=== PATIENT | female | born 1960 | race Caucasian/White ===

== ENCOUNTER → 2024-11-07 | Outpatient (CLI) | payer OTHER ==
--- NOTE | 2024-11-07 12:04 | MM ---
Reason for Exam: Follow-up at short interval from prior study. Last screening mammogram was performed 1 month(s) ago. Patient History: Menarche at age 13. First Full-Term at age 18. Postmenopausal. Patient used Hormonal Contraceptives for 2 years. 2009, Stereotactic Core Biopsy on the Right side. Mother had breast cancer. Sister (jatin) had breast cancer at or over age 50. Sister (christiana) had breast cancer. Risk Values: Tasha 5 year model risk: 9.0%. NCI Lifetime model risk: 31.4%. Prior Study Comparison: 10/04/2024 Bilateral MG 3D screening mammo w/cad, [facility]. Tissue Density: Left: The breasts are heterogeneously dense, which may obscure small masses. Findings: Analyzed By CAD. No definitive suspicious focal lesion persists on additional views but there is background dense tissue noted. Overall Assessment: Incomplete: need additional imaging evaluation, BI-RAD 0 Management: Diagnostic Breast Ultrasound of the left breast. . Results were given to the patient verbally at the time of exam. Patient should continue monthly self-breast exams. A clinical breast exam by your physician is recommended on an annual basis. This exam should not preclude additional follow-up of suspicious palpable abnormalities. Note on Tasha scores and lifetime risk: 1. A Tasha score greater than 3% is considered moderate risk. If this is the case, consider specialist referral to assess eligibility for a risk reducing agent. 2. If overall lifetime risk for the development of breast cancer is 20% or higher, the patient may qualify for future screening with alternating mammogram and breast MRI. [facility], , 11/07/2024 12:01 PM. Electronically signed and approved by: Jesu Sanabria M.D.
--- NOTE | 2024-11-07 12:53 | USB ---
Reason for Exam: Additional evaluation requested from abnormal screening. Patient History: Menarche at age 13. First Full-Term at age 18. Postmenopausal. Patient used Hormonal Contraceptives for 2 years. 2009, Stereotactic Core Biopsy on the Right side. Mother had breast cancer. Sister (jatin) had breast cancer at or over age 50. Sister (christiana) had breast cancer. Risk Values: Tasha 5 year model risk: 9.0%. NCI Lifetime model risk: 31.4%. Technique: Method: Targeted. Prior Study Comparison: 10/04/2024 Bilateral MG 3D screening mammo w/cad, [facility]. Findings: The upper inner quadrant of the left breast was scanned. Targeted ultrasound. At 11:00 position 5 cm distance from nipple there is a 5 x 7 x 3 mm oval circumscribed avascular lesion that is too small to further characterize without posterior features.. Overall Assessment: Probably benign, BI-RAD 3 Management: Diagnostic Mammogram of the left breast in 6 months. Diagnostic Breast Ultrasound of the left breast in 6 months. Short-term precautionary follow-up. A clinical breast exam by your physician is recommended on an annual basis and results should be correlated with mammographic findings. This exam should not preclude additional follow-up of suspicious palpable abnormalities. Results were given to the patient verbally at the time of exam. [facility], , 11/07/2024 12:50 PM. Electronically signed and approved by: Jesu Sanabria M.D.
== END | disposition home or self-care (01) ==
LOC: RADMAMWWP 10:54
PROVIDERS: ATTEND Internal Medicine Pulmonary Disease
DX: R92.8 Other abnormal and inconclusive findings on diagnostic imaging of breast (principal); N63.0 Unspecified lump in unspecified breast; R92.332 Mammographic heterogeneous density, left breast; Z78.0 Asymptomatic menopausal state; Z92.0 Personal history of contraception; Z80.3 Family history of malignant neoplasm of breast
CPT/HCPCS: 77065; 76642; G0279; 77061